=== PATIENT | male | born 1995 | race Caucasian/White ===

== ENCOUNTER 2018-04-11 21:14 | Observation (INO) ==
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
[2018-04-11] MEDS ORDERED: Isovue-370 500 ML INFUS..BTL IV ONE (21:44)
[2018-04-11] MEDS ORDERED: Piperacillin/Tazobactam 3.375 GM in 0.9 % Sodium Chloride Mini Bag 100 ML IVPB ONE (22:29)
[2018-04-11 22:31] LABS: Basophils % 0.4 %; Eosinophils # 0.1 K/mcL (0.0-0.6); Eosinophils % 1.5 %; Hematocrit 40.5 % (37.5-50.1); Hemoglobin 14.1 g/dL (12.9-16.9); Immature Granulocytes % 0.4 % (0-4); Lymphocytes # 2.3 K/mcL (0.6-4.6); Lymphocytes % 27.8 %; Mean Corpuscular HGB Conc 34.8 g/dL (31.6-35.5); Mean Corpuscular Hemoglobin 30.6 pg (28.0-33.3); Mean Corpuscular Volume 87.9 fL (83.0-100.0); Mean Platelet Volume 8.8 fL (9.4-12.4); Monocytes # 0.7 K/mcL (0.0-1.3); Monocytes % 8.9 %; Platelet Count 231 K/mcL (140-400); Red Blood Count 4.61 M/mcL (4.19-5.50); Red Cell Distribution Width 13.5 % (11.5-14.5)
[2018-04-11 22:51] LABS: BUN/Creatinine Ratio 23 (6-26); Blood Urea Nitrogen 19 mg/dL (6-20); Calcium 9.8 mg/dL (8.6-10.3); Carbon Dioxide 32 mEq/L (23-29); Chloride 103 mEq/L (98-107); Glucose 93 mg/dL (70-105); Osmolality,Calculated 292 (280-300); Potassium 4.6 mEq/L (3.5-5.1); Sodium 140 mEq/L (136-145); eGFR For Non-African Americans > 60 (> 60)
[2018-04-11] MEDS ORDERED: *HR* FentaNYL (PF) 100 MCG/2 ML VIAL IVP ONE (22:57)
[2018-04-11] MEDS ORDERED: 0.9 % Sodium Chloride 1,000 ML IVC ONE (23:03)
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
--- NOTE | 2018-04-12 00:44 | Emergency Department Note ---
Disposition Clinical Impression: Right foot pain, Cellulitis of right foot, Sternal pain Disposition: Admitted As Inpatient Condition: Fair Referrals: NONE,PCP [Primary Care Provider] - Forms: ED Satisfaction Letter General Adult HPI - General Chief complaint: ED Chest Pain Stated complaint: CP/ ANKLE PAIN WARM AND RED Time Seen by Provider: 04/11/18 21:23 Source: patient Mode of arrival: ambulatory Limitations: no limitations - History of Present Illness Pain Scale: 3 - Related Data Allergies Allergy/AdvReac Type Severity Reaction Status Date / Time No Known Allergies Allergy Verified 04/11/18 21:25 Constitutional: Denies: fever Cardiovascular: Denies: chest pain Respiratory: Denies: cough, dyspnea, wheezes Gastrointestinal: Denies: abdominal pain, nausea, vomiting, diarrhea Musculoskeletal: Reports: arthralgia, myalgia, other (sternum pain) Neurological: Denies: headache, weakness, numbness, paresthesias Physical Exam - General Limitations: no limitations General appearance: alert, in no apparent distress Course Course Narrative: Patient signed out pending imaging of his foot. Please see prior documentation for details. Introduced myself to the patient. Noted to have significant swelling to the right foot as well as overlying erythema. Labs are grossly unremarkable. Patient given broad-spectrum antibiotics and admitted to the hospitalist service. Vital Signs Temperature 98 F 04/11/18 21:25 Pulse Rate 76 04/11/18 21:25 Respiratory Rate 20 04/11/18 21:25 Blood Pressure 107/64 04/11/18 21:25 O2 Sat by Pulse Oximetry 96 04/11/18 21:25 Temperature 98 F 04/11/18 21:25 Pulse Rate 76 04/11/18 21:25 Respiratory Rate 20 04/11/18 21:25 Blood Pressure 107/64 04/11/18 21:25 O2 Sat by Pulse Oximetry 96 04/11/18 21:25 Oxygen Delivery Oxygen Delivery Room Air Medical Decision Making - MDM Narrative Medical decision making narrative: 23-year-old male with right foot swelling. Recent injury. Erythema over the foot. Hemodynamically stable. Patient given vancomycin and Zosyn. Admitted to the hospitalist service. - Lab Data Lab results reviewed: Yes I reviewed the patient's lab results. Result diagrams: 04/11/18 22:13 04/11/18 22:13 Lab Results 09/02/18 09/02/18 Range/Units 22:13 22:13 WBC 8.2 (4.3-11.1) K/mcL RBC 4.61 (4.19-5.50) M/mcL Hgb 14.1 (12.9-16.9) g/dL Hct 40.5 (37.5-50.1) % MCV 87.9 (83.0-100.0) fL MCH 30.6 (28.0-33.3) pg MCHC 34.8 (31.6-35.5) g/dL RDW 13.5 (11.5-14.5) % Plt Count 231 (140-400) K/mcL MPV 8.8 L (9.4-12.4) fL Immature Gran % 0.4 (0-4) % Seg Neutrophils % 61.0 % Lymphocytes % 27.8 % Monocytes % 8.9 % Eosinophils % 1.5 % Basophils % 0.4 % Neutrophils # 5.0 (1.6-8.9) K/mcL Lymphocytes # 2.3 (0.6-4.6) K/mcL Monocytes # 0.7 (0.0-1.3) K/mcL Eosinophils # 0.1 (0.0-0.6) K/mcL Basophils # 0.0 (0.0-0.2) K/mcL Sodium 140 (136-145) mEq/L Potassium 4.6 (3.5-5.1) mEq/L Chloride 103 (98-107) mEq/L Carbon Dioxide 32 H (23-29) mEq/L BUN 19 (6-20) mg/dL Creatinine 0.82 (0.70-1.30) mg/dL Est GFR ( Amer) > 60 (> 60) Est GFR (Non-Af Amer) > 60 (> 60) BUN/Creatinine Ratio 23 (6-26) Glucose 93 (70-105) mg/dL Calculated Osmolality 292 (280-300) Calcium 9.8 (8.6-10.3) mg/dL S.B.A.R. - S.B.A.R. Situation: Demographics, MOA Background: Presenting Complaint, Relevant PMH, Meds, & Allergies Assessment: Vital Signs, Course and respsone to treatment, Exam Concerns, Patient/Family Expectation, Pertinant Lab Results Recommendation: Barrier(s) to disposition, Recommendation based on pending studies, treatments, or consults [place] Report Given to: Dr. Sameera Brush Repor Time: 01:01
[2018-04-12] MEDS ORDERED: Naloxone 0.4 MG/ML INJ IVP PRN ×2 (02:03→05:51)
[2018-04-12] MEDS ORDERED: traMADol 50 MG TABLET PO PRN (02:03)
[2018-04-12] MEDS ORDERED: Acetaminophen 325 MG TABLET PO PRN (02:03)
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
[2018-04-12] MEDS: *HR* Heparin 5,000 UNIT/ML VIAL SQ SCH ×3 (05:26→21:31)
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
[2018-04-12] MEDS: Piperacillin/Tazobactam 3.375 GM in 0.9 % Sodium Chloride Mini Bag 100 ML IVPB SCH ×3 (08:06→23:14)
[2018-04-12 09:22] LABS: Basophils % 0.3 %; Eosinophils # 0.2 K/mcL (0.0-0.6); Eosinophils % 2.2 %; Hematocrit 39.4 % (37.5-50.1); Hemoglobin 13.5 g/dL (12.9-16.9); Immature Granulocytes % 0.4 % (0-4); Lymphocytes # 2.2 K/mcL (0.6-4.6); Lymphocytes % 31.6 %; Mean Corpuscular HGB Conc 34.3 g/dL (31.6-35.5); Mean Corpuscular Hemoglobin 29.9 pg (28.0-33.3); Mean Corpuscular Volume 87.2 fL (83.0-100.0); Mean Platelet Volume 9.2 fL (9.4-12.4); Monocytes # 0.8 K/mcL (0.0-1.3); Monocytes % 12.2 %; Neutrophils # 3.7 K/mcL (1.6-8.9); Platelet Count 208 K/mcL (140-400); Red Blood Count 4.52 M/mcL (4.19-5.50); Red Cell Distribution Width 13.5 % (11.5-14.5); Segmented Neutrophils % 53.3 %
[2018-04-12 09:37] LABS: Alanine Aminotransferase 66 Units/L (7-52); Albumin 3.6 g/dL (3.5-5.7); Albumin/Globulin Ratio 1.4 (1.1-2.2); Alkaline Phosphatase 58 Units/L (34-104); Aspartate Amino Transferase 45 Units/L (13-39); BUN/Creatinine Ratio 21 (6-26); Bilirubin,Total 0.5 mg/dL (0.3-1.0); Blood Urea Nitrogen 16 mg/dL (6-20); Calcium 9.2 mg/dL (8.6-10.3); Carbon Dioxide 29 mEq/L (23-29); Chloride 109 mEq/L (98-107); Globulin 2.5 g/dL (2.4-3.5); Glucose 103 mg/dL (70-105); Osmolality,Calculated 291 (280-300); Potassium 4.3 mEq/L (3.5-5.1); Sodium 140 mEq/L (136-145); Total Protein 6.1 g/dL (6.4-8.9); eGFR For Non-African Americans > 60 (> 60)
[2018-04-12] MEDS ORDERED: Nicotine 21 MG PATCH.TD24 TD SCH (11:30)
[2018-04-12] MEDS ORDERED: Neosporin OINT 1 APPL PACKET TP SCH ×3 (13:00→21:00)
[2018-04-12] MEDS ORDERED: Neosporin OINT 15 GM TUBE TP SCH (13:15)
[2018-04-12] MEDS: *HR* OxyCODONE Immed Rel 5 MG TABLET PO PRN ×2 (16:27→23:17)
[2018-04-12 23:32] VITALS: BP 136/82
[2018-04-13] MEDS ORDERED: Aminoglycoside Consult 1 EACH MC ONE (00:41)
--- NOTE | 2018-04-13 22:22 | Electrocardiograph Report ---
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
== END 2018-04-13 00:42 | disposition left against medical advice (07) ==
LOC: 3ANU 21:14 → EMEROOARM 21:14 → SUATTDRO 04-12 01:44 → 3ANU 04-12 02:37
PROVIDERS: ADMIT Internal Medicine; ATTEND Hospitalist